=== PATIENT | male | born 1975 | race Two or more races ===

== ENCOUNTER 2024-12-07 23:22 | Inpatient (IN) | payer OTHER, MEDICARE ==
[~2024-12-07] VITALS: Ht 172.7 cm; Wt 107.0 kg
[2024-12-08] VITALS (18 sets, daily range): BP systolic 91–108; BP diastolic 46–63; PULSE 67–106; RESP 16–28; TEMP 98.1–100.3; O2SAT 92–100
[2024-12-08] MEDS: proCHLORperazine 10 MG/2 ml inj IV ONE (00:46)
[2024-12-08 01:06] LABS: BASOPHILS % (AUTO) 0.3 % (0-1); EOSINOPHILS % (AUTO) 0 % (0-6); HEMOGLOBIN 12.1 g/dl (14.0-17.9); LYMPHOCYTES # (AUTO) 0.4 X10'3 (1.1-4.8); LYMPHOCYTES % (AUTO) 3.2 % (21-51); MEAN CORPUSCULAR HEMOGLOBIN 32.3 PG (27.0-31.0); MEAN CORPUSCULAR HGB CONC 34.5 g/dL (33.0-36.5); MEAN CORPUSCULAR VOLUME 93.6 FL (78-98); MEAN PLATELET VOLUME 7.9 FL (7.4-10.4); MONOCYTES # (AUTO) 0.6 X10'3 (0-0.9); MONOCYTES % (AUTO) 5.5 % (2-12); PLATELET COUNT 140 X10'3 (140-440); RED BLOOD COUNT 3.74 X10'6 (4.70-6.10); RED CELL DISTRIBUTION WIDTH 16.9 % (11.5-14.5)
[2024-12-08] MEDS ORDERED: INSU100I98 (01:08)
[2024-12-08] MEDS ORDERED: AMLO5TAB5 PO (01:08)
[2024-12-08] MEDS ORDERED: ALLO100T PO (01:08)
[2024-12-08] MEDS ORDERED: CALC0.2510 (01:08)
[2024-12-08] MEDS ORDERED: GABA-530 PO (01:08)
[2024-12-08] MEDS ORDERED: SENN8.6T19 PO (01:08)
[2024-12-08] MEDS ORDERED: CALC667C5 PO (01:08)
[2024-12-08] MEDS ORDERED: ONDA-243 PO (01:08)
[2024-12-08] MEDS ORDERED: INSU100C4 SQ (01:08)
[2024-12-08] MEDS ORDERED: FURO80TA3 PO (01:08)
[2024-12-08] MEDS ORDERED: COUM1POW (01:08)
[2024-12-08] MEDS ORDERED: NORT75CA PO (01:08)
[2024-12-08] MEDS ORDERED: SEVE800T8 PO (01:08)
[2024-12-08] MEDS ORDERED: ATOR80TA PO (01:08)
[2024-12-08] MEDS ORDERED: LEVO50TA PO (01:08)
[2024-12-08] MEDS ORDERED: POLY17PO10 PO (01:08)
[2024-12-08] MEDS ORDERED: APIX2.5T PO (01:08)
[2024-12-08] MEDS ORDERED: OXYC5TAB2 PO (01:08)
[2024-12-08] MEDS ORDERED: DOCU-148 PO (01:08)
[2024-12-08] MEDS ORDERED: ACET-1008 PO (01:08)
[2024-12-08] MEDS ORDERED: CLON1PAT (01:08)
[2024-12-08] MEDS ORDERED: HYDR25TA90 PO (01:08)
[2024-12-08] MEDS ORDERED: LOSA-418 PO (01:08)
[2024-12-08] MEDS ORDERED: ISOS120T13 PO (01:08)
[2024-12-08 01:26] LABS: ALANINE AMINOTRANSFERASE 126 U/L (12-78); ALBUMIN 2.2 G/DL (3.4-5.0); ALBUMIN/GLOBULIN RATIO 0.5 (1.1-1.5); ALKALINE PHOSPHATASE 147 IU/L (46-116); ANION GAP 12 (8-16); ASPARTATE AMINO TRANSFERASE 202 U/L (10-37); BILIRUBIN,TOTAL 1.8 MG/DL (0.1-1.0); BLOOD UREA NITROGEN 65 MG/DL (7-18); BUN/CREATININE RATIO 8.3 (10.0-20.0); CALCIUM 8.2 MG/DL (8.5-10.1); CHLORIDE 90 MMOL/L (99-107); GLUCOSE 133 MG/DL (70-104); LIPASE 14 U/L (16-77); POTASSIUM 5.6 MMOL/L (3.5-5.1); SODIUM 128 MMOL/L (135-145); TOTAL CARBON DIOXIDE 25.9 MMOL/L (24-32); TOTAL PROTEIN 6.8 G/DL (6.4-8.2); eCRCL 11 ML/MIN; eGFR 7 ML/MIN
[2024-12-08 01:32] LABS: PRO BRAIN NATRIURETIC PEPTIDE > 30000 PG/ML (0-125)
[2024-12-08] MEDS ORDERED: potassium Cl 40MEQ/1/2NS 520ml 520 ML IV PRN (01:35)
[2024-12-08] MEDS ORDERED: magnesium sulf-water 2g/50mL 50 ML IV PRN (01:35)
[2024-12-08] MEDS ORDERED: acetaminophen 325mg tablet PO PRN (01:35)
[2024-12-08] MEDS ORDERED: magnesium hydroxide 30ml (MOM) UD suspension PO PRN (01:35)
[2024-12-08] MEDS ORDERED: mag hydrox/Alum hydrox/simeth 30ml oral suspension PO PRN (01:35)
[2024-12-08] MEDS ORDERED: potassium Cl 20 mEq SR tablet PO PRN ×2 (01:35)
[2024-12-08] MEDS ORDERED: magnesium sulf-water 4G/100mL 100 ML IV PRN (01:35)
[2024-12-08] MEDS ORDERED: magnesium Cl slow-release 64mg tablet PO PRN (01:35)
[2024-12-08 01:52] LABS: PHOSPHORUS 7.1 MG/DL (2.3-4.5)
[2024-12-08] MEDS: insulin regular, human 10 units/0.1 ml syringe IV ONE (02:22)
[2024-12-08] MEDS: dextrose 50%-water 50ml dispensing syringe IV ONE ×2 (02:22→04:22)
[2024-12-08] MEDS: carvedilol 6.25mg tablet PO SCH (02:30)
[2024-12-08] MEDS ORDERED: VANCOMYCIN 1GM 200ML H20 (PEG) 200 ML IV PRN (03:40)
[2024-12-08] MEDS ORDERED: dextrose 50%-water 50ml dispensing syringe IV PRN (04:15)
[2024-12-08] MEDS ORDERED: glucagon, human recombinant 1mg kit SUBCUT PRN (04:15)
[2024-12-08] MEDS ORDERED: DEXTROSE 15 GM of carb/4 tabs (each vial/BOTTLE has 4 tablets) PO PRN ×2 (04:15)
[2024-12-08] MEDS: dextrose 50%-water 50ml dispensing syringe IV PRN (04:25)
[2024-12-08] MEDS: CefTRIAXone/D5W-Rocephin 1gm 50 ML IV SCH (04:35)
[2024-12-08 04:42] LABS: ABG BASE EXCESS 1.3 mmol/L (-2.0-3.0); ABG OXYGEN SATURATION 93.8 % (94.0-98.0); ABG PCO2 (T) 37.4 mmHg (35.0-48.0); ABG PH (T) 7.445 (7.350-7.450); ABG PO2 (T) 79.8 mmHg (83.0-108.0); ALLEN'S TEST POSITIVE; FCOHb 0.5 % (0.5-1.5); FHHb 6.2 % (0.0-5.0); FMetHb 0.3 % (0.0-1.5); MODE VENT - CPAP; PATIENT TEMPERATURE 37.9; TOTAL HEMOGLOBIN 11.2 G/dl (13.5-17.5)
[2024-12-08] MEDS: VANCOMYCIN 1.75GM/WATER FOR INJ (PEG) 350 ML IVPB IV ONE (05:24)
[2024-12-08] MEDS: heparin, porcine 5000 units/ml vial SQ SCH (07:32)
[2024-12-08] MEDS: K and/or MAG REPLACEMENT MC SCH (08:00)
[2024-12-08] MEDS: piperacillin/tazo 4.5gm/100ml 100 ML IV SCH (08:54)
[2024-12-08] MEDS ORDERED: albumin (human) 25% 100ml IV 100 ML IV PRN (12:35)
[2024-12-08] MEDS: ondansetron/PF 4mg/2ml inj IV PRN (13:17)
[2024-12-08] MEDS: morphine 2 MG/ML inj. syringe IV PRN (13:17)
[2024-12-08 14:34] LABS: C DIFF ANTIGEN NEGATIVE (NEGATIVE); C DIFF SPECIMEN=DIARRHEA? ACCEPTABLE; C DIFFICILE TOXINS A&B NEGATIVE (Neg)
[2024-12-08] MEDS: hydrALAZINE 25 MG tablet PO SCH (15:35)
[2024-12-08] MEDS: gabapentin 300mg capsule PO SCH (15:36)
[2024-12-08] MEDS: heparin 1,000 units/ml 10ml inj HE ONE ×2 (16:06)
[2024-12-08] MEDS: heparin 1,000unit/ml 10ml vial 10 ML IV ONE (16:35)
[2024-12-08] MEDS: heparin 1,000 units/ml 10ml inj IV ONE (16:36)
[2024-12-08] MEDS: NUT.TX.IMP.RENAL FXN,LAC-REDUC (Nepro) 237 ML VANILLA PO SCH (18:15)
[2024-12-08] MEDS: nortriptyline 25mg capsule PO SCH (20:18)
[2024-12-09] VITALS (11 sets, daily range): BP systolic 78–97; BP diastolic 41–50; PULSE 78–86; RESP 18–26; TEMP 97.7–99.2; O2SAT 93–100
[2024-12-09] MEDS: VANCOMYCIN LEVEL IV SCH (03:00)
[2024-12-09 05:36] LABS: BASOPHILS % (AUTO) 0.3 % (0-1); EOSINOPHILS # (AUTO) 0.1 X10'3 (0-0.9); EOSINOPHILS % (AUTO) 0.9 % (0-6); HEMATOCRIT 29.6 % (42.0-52.0); LYMPHOCYTES # (AUTO) 0.4 X10'3 (1.1-4.8); LYMPHOCYTES % (AUTO) 5.2 % (21-51); MEAN CORPUSCULAR HEMOGLOBIN 32.1 PG (27.0-31.0); MEAN CORPUSCULAR HGB CONC 33.9 g/dL (33.0-36.5); MEAN CORPUSCULAR VOLUME 94.8 FL (78-98); MEAN PLATELET VOLUME 8.6 FL (7.4-10.4); MONOCYTES # (AUTO) 0.8 X10'3 (0-0.9); NEUTROPHILS # (AUTO) 6.3 X10'3 (1.8-7.7); NEUTROPHILS % (AUTO) 83.6 % (42-75); PLATELET COUNT 104 X10'3 (140-440); RED BLOOD COUNT 3.12 X10'6 (4.70-6.10); RED CELL DISTRIBUTION WIDTH 17.1 % (11.5-14.5); WHITE BLOOD COUNT 7.5 X10'3 (4.5-11.0)
[2024-12-09 05:57] LABS: ALANINE AMINOTRANSFERASE 148 U/L (12-78); ALBUMIN 1.4 G/DL (3.4-5.0); ALBUMIN/GLOBULIN RATIO 0.4 (1.1-1.5); ALKALINE PHOSPHATASE 103 IU/L (46-116); ANION GAP 12 (8-16); ASPARTATE AMINO TRANSFERASE 143 U/L (10-37); BILIRUBIN,TOTAL 1.3 MG/DL (0.1-1.0); BLOOD UREA NITROGEN 57 MG/DL (7-18); BUN/CREATININE RATIO 8.5 (10.0-20.0); CALCIUM 7.6 MG/DL (8.5-10.1); CHLORIDE 95 MMOL/L (99-107); CREATININE 6.72 MG/DL (0.60-1.10); GLUCOSE 123 MG/DL (70-104); MAGNESIUM 3.4 MG/DL (1.5-2.4); POTASSIUM 4.7 MMOL/L (3.5-5.1); SODIUM 132 MMOL/L (135-145); TOTAL CARBON DIOXIDE 24.9 MMOL/L (24-32); TOTAL PROTEIN 5.1 G/DL (6.4-8.2); eCRCL 13 ML/MIN; eGFR 9 ML/MIN
[2024-12-09] MEDS ORDERED: amLODIPine 5mg tablet PO SCH (08:00)
[2024-12-09] MEDS: levoTHYROXINE 25mcg tablet PO SCH (08:00)
[2024-12-09] MEDS ORDERED: losartan 50mg tablet PO SCH (08:00)
[2024-12-09] MEDS: furosemide 40mg tablet PO SCH (08:00)
[2024-12-09] MEDS: atorvastatin 20mg tablet PO SCH (08:00)
[2024-12-09] MEDS: albumin (human) 25% 100 ML IV solution IV ONE (11:01)
[2024-12-09] MEDS: albumin (human) 25% 100 ML IV solution IV SCH (16:00)
[2024-12-09] MEDS: VANCOMYCIN 1GM 200ML H20 (PEG) 200 ML IV ONE (16:32)
[2024-12-09] MEDS: gabapentin 100mg capsule PO SCH (16:45)
[2024-12-09] MEDS: albumin (Human) 5% 250ml 250 ML IV ONE ×2 (17:52→20:06)
[2024-12-09] MEDS ORDERED: vancomycin/NS 1 GM ADD-VANTAGE 250 ML IV SCH (20:00)
[2024-12-09] MEDS: midodrine 5mg tablet PO STA (23:50)
[2024-12-10] VITALS (39 sets, daily range): BP systolic 78–147; BP diastolic 42–85; PULSE 81–90; RESP 11–29; TEMP 97.9–99.1; O2SAT 86–100
[2024-12-10] MEDS: midodrine 5mg tablet PO SCH (03:25)
[2024-12-10] MEDS: normal saline 500ml IV soln 500 ML IV ONE (03:36)
[2024-12-10 07:02] LABS: BASOPHILS % (AUTO) 0.5 % (0-1); EOSINOPHILS # (AUTO) 0.4 X10'3 (0-0.9); EOSINOPHILS % (AUTO) 4.6 % (0-6); LYMPHOCYTES # (AUTO) 0.7 X10'3 (1.1-4.8); LYMPHOCYTES % (AUTO) 8.1 % (21-51); MEAN CORPUSCULAR HEMOGLOBIN 31.7 PG (27.0-31.0); MEAN CORPUSCULAR HGB CONC 33.5 g/dL (33.0-36.5); MEAN CORPUSCULAR VOLUME 94.6 FL (78-98); MEAN PLATELET VOLUME 9.5 FL (7.4-10.4); MONOCYTES # (AUTO) 1.2 X10'3 (0-0.9); MONOCYTES % (AUTO) 13.9 % (2-12); NEUTROPHILS # (AUTO) 6.2 X10'3 (1.8-7.7); NEUTROPHILS % (AUTO) 72.9 % (42-75); PLATELET COUNT 83 X10'3 (140-440); RED BLOOD COUNT 3.17 X10'6 (4.70-6.10); RED CELL DISTRIBUTION WIDTH 16.9 % (11.5-14.5); WHITE BLOOD COUNT 8.5 X10'3 (4.5-11.0)
[2024-12-10 07:54] LABS: ALANINE AMINOTRANSFERASE 167 U/L (12-78); ALBUMIN 2.4 G/DL (3.4-5.0); ALBUMIN/GLOBULIN RATIO 0.7 (1.1-1.5); ANION GAP 17 (8-16); ASPARTATE AMINO TRANSFERASE 164 U/L (10-37); BILIRUBIN,TOTAL 1.5 MG/DL (0.1-1.0); BLOOD UREA NITROGEN 73 MG/DL (7-18); BUN/CREATININE RATIO 8.8 (10.0-20.0); CALCIUM 7.8 MG/DL (8.5-10.1); CHLORIDE 93 MMOL/L (99-107); CREATININE 8.26 MG/DL (0.60-1.10); GLUCOSE 131 MG/DL (70-104); MAGNESIUM 2.2 MG/DL (1.5-2.4); POTASSIUM 4.7 MMOL/L (3.5-5.1); SODIUM 131 MMOL/L (135-145); TOTAL CARBON DIOXIDE 20.6 MMOL/L (24-32); TOTAL PROTEIN 5.8 G/DL (6.4-8.2); eCRCL 11 ML/MIN; eGFR 7 ML/MIN
[2024-12-10] MEDS ORDERED: midodrine 5mg tablet PO SCH (08:00)
[2024-12-10 08:15] LABS: ALKALINE PHOSPHATASE 146 IU/L (46-116); VANCOMYCIN,RANDOM 22.5 ug/mL (20.0-30.0)
[2024-12-10] MEDS: MULTIVIT-MIN/FERROUS GLUCONATE 9 MG/15 ML LIQUID PO SCH (09:00)
[2024-12-10] MEDS: NORepinephrine 8mg/ 250ml NS 250 ML IV ONE (09:22)
[2024-12-10] MEDS: NORepinephrine 8mg/ 250ml NS 250 ML IV SCH (09:24)
[2024-12-10] MEDS: pantoprazole 40MG/NS 100ML BAG 100 ML IV SCH (10:17)
[2024-12-10] MEDS: NS IV ONE (10:20)
[2024-12-10] MEDS: DOXYCYCLINE IV ONE (10:20)
[2024-12-10 11:15] LABS: ABG HCO3 23.2 mmol/L (21.0-28.0); ABG OXYGEN SATURATION 94.6 % (94.0-98.0); ABG PCO2 (T) 36.8 mmHg (35.0-48.0); ABG PH (T) 7.417 (7.350-7.450); ABG PO2 (T) 77.9 mmHg (83.0-108.0); ALLEN'S TEST POSITIVE; FCOHb 0.8 % (0.5-1.5); FHHb 5.3 % (0.0-5.0); FLOW 3 L/min; FMetHb 0.3 % (0.0-1.5); FO2Hb 93.6 % (94.0-98.0); MODE NASAL CANNULA; PATIENT TEMPERATURE 36.9; TOTAL HEMOGLOBIN 11.3 G/dl (13.5-17.5)
[2024-12-10] MEDS: heparin 1,000unit/ml 10ml vial 10 ML IV ONE (11:51)
[2024-12-10] MEDS: heparin 1,000 units/ml 10ml inj IV ONE (11:52)
[2024-12-10] MEDS: ondansetron 4mg rapidly disintigrating tab PO ONE (14:55)
[2024-12-10] MEDS: DOXYCYCLINE 100 MG in NORMAL SALINE 100ml IV.SOLN IV SCH (21:22)
[2024-12-11] VITALS (17 sets, daily range): BP systolic 95–128; BP diastolic 51–82; PULSE 83–96; RESP 16–24; TEMP 97–98.1; O2SAT 9–100
[2024-12-11 05:18] LABS: HBSAG SCREEN Negative (Negative); HEP B SURF AB Reactive (.)
[2024-12-11 08:34] LABS: BASOPHILS # (AUTO) 0.1 X10'3 (0-0.2); BASOPHILS % (AUTO) 0.7 % (0-1); EOSINOPHILS # (AUTO) 0.3 X10'3 (0-0.9); EOSINOPHILS % (AUTO) 4.2 % (0-6); HEMATOCRIT 31.9 % (42.0-52.0); HEMOGLOBIN 10.7 g/dl (14.0-17.9); LYMPHOCYTES # (AUTO) 0.5 X10'3 (1.1-4.8); MEAN CORPUSCULAR HEMOGLOBIN 31.6 PG (27.0-31.0); MEAN CORPUSCULAR HGB CONC 33.6 g/dL (33.0-36.5); MEAN CORPUSCULAR VOLUME 93.9 FL (78-98); MEAN PLATELET VOLUME 9.2 FL (7.4-10.4); MONOCYTES % (AUTO) 12.4 % (2-12); NEUTROPHILS % (AUTO) 76.7 % (42-75); PLATELET COUNT 94 X10'3 (140-440); RED BLOOD COUNT 3.39 X10'6 (4.70-6.10); RED CELL DISTRIBUTION WIDTH 16.7 % (11.5-14.5); WHITE BLOOD COUNT 7.9 X10'3 (4.5-11.0)
[2024-12-11 08:58] LABS: ALANINE AMINOTRANSFERASE 145 U/L (12-78); ALBUMIN 2.5 G/DL (3.4-5.0); ALBUMIN/GLOBULIN RATIO 0.7 (1.1-1.5); ALKALINE PHOSPHATASE 139 IU/L (46-116); ANION GAP 16 (8-16); ASPARTATE AMINO TRANSFERASE 89 U/L (10-37); BILIRUBIN,TOTAL 1.7 MG/DL (0.1-1.0); BLOOD UREA NITROGEN 53 MG/DL (7-18); BUN/CREATININE RATIO 8.2 (10.0-20.0); CALCIUM 8.3 MG/DL (8.5-10.1); CHLORIDE 97 MMOL/L (99-107); CREATININE 6.48 MG/DL (0.60-1.10); GLUCOSE 146 MG/DL (70-104); MAGNESIUM 2.2 MG/DL (1.5-2.4); PHOSPHORUS 6.5 MG/DL (2.3-4.5); SODIUM 134 MMOL/L (135-145); TOTAL PROTEIN 6.1 G/DL (6.4-8.2); VANCOMYCIN,RANDOM 16.2 ug/mL (20.0-30.0); eCRCL 14 ML/MIN; eGFR 9 ML/MIN
[2024-12-11] MEDS ORDERED: DEXTROSE 15 GM of carb/4 tabs (each vial/BOTTLE has 4 tablets) PO PRN ×2 (14:15)
[2024-12-11] MEDS ORDERED: glucagon, human recombinant 1mg kit SUBCUT PRN (14:15)
[2024-12-11] MEDS ORDERED: dextrose 50%-water 50ml dispensing syringe IV PRN ×2 (14:15)
[2024-12-11] MEDS: INSULIN LISPRO 100 UNIT/ML INSULN.PEN MULTI-DOSE SQ SCH ×2 (17:00→18:00)
[2024-12-11] MEDS: ampicill/sulbac 1.5gm/NS 100ml 100 ML IV SCH (19:32)
[2024-12-11] MEDS: insulin glargine (Lantus) pen - multi-dose SQ SCH (21:37)
[2024-12-12] VITALS (12 sets, daily range): BP systolic 92–112; BP diastolic 50–72; PULSE 71–88; RESP 14–24; TEMP 97.4–98.1; O2SAT 93–100
[2024-12-12 07:38] LABS: BASOPHILS # (AUTO) 0.1 X10'3 (0-0.2); BASOPHILS % (AUTO) 0.8 % (0-1); EOSINOPHILS # (AUTO) 0.3 X10'3 (0-0.9); EOSINOPHILS % (AUTO) 4.2 % (0-6); HEMATOCRIT 30.3 % (42.0-52.0); HEMOGLOBIN 10.3 g/dl (14.0-17.9); LYMPHOCYTES # (AUTO) 0.7 X10'3 (1.1-4.8); LYMPHOCYTES % (AUTO) 10.4 % (21-51); MEAN CORPUSCULAR VOLUME 94.3 FL (78-98); MEAN PLATELET VOLUME 9.1 FL (7.4-10.4); MONOCYTES # (AUTO) 1.2 X10'3 (0-0.9); MONOCYTES % (AUTO) 18.2 % (2-12); NEUTROPHILS # (AUTO) 4.3 X10'3 (1.8-7.7); NEUTROPHILS % (AUTO) 66.4 % (42-75); PLATELET COUNT 127 X10'3 (140-440); RED BLOOD COUNT 3.21 X10'6 (4.70-6.10); RED CELL DISTRIBUTION WIDTH 17.3 % (11.5-14.5); WHITE BLOOD COUNT 6.5 X10'3 (4.5-11.0)
[2024-12-12 07:43] LABS: ALANINE AMINOTRANSFERASE 129 U/L (12-78); ALBUMIN 2.4 G/DL (3.4-5.0); ALBUMIN/GLOBULIN RATIO 0.6 (1.1-1.5); ALKALINE PHOSPHATASE 153 IU/L (46-116); ANION GAP 16 (8-16); ASPARTATE AMINO TRANSFERASE 61 U/L (10-37); BILIRUBIN,TOTAL 1.3 MG/DL (0.1-1.0); BLOOD UREA NITROGEN 60 MG/DL (7-18); BUN/CREATININE RATIO 7.8 (10.0-20.0); CALCIUM 8.2 MG/DL (8.5-10.1); CHLORIDE 97 MMOL/L (99-107); CREATININE 7.74 MG/DL (0.60-1.10); GLUCOSE 104 MG/DL (70-104); MAGNESIUM 2.4 MG/DL (1.5-2.4); PHOSPHORUS 7.3 MG/DL (2.3-4.5); SODIUM 136 MMOL/L (135-145); TOTAL CARBON DIOXIDE 23.2 MMOL/L (24-32); TOTAL PROTEIN 6.2 G/DL (6.4-8.2); VANCOMYCIN,RANDOM 15.7 ug/mL (20.0-30.0); eCRCL 11 ML/MIN; eGFR 8 ML/MIN
[2024-12-12 08:46] LABS: ANISOCYTOSIS 1+; BURR CELLS FEW; ELLIPTOCYTES FEW; PLATELET ESTIMATE DECREASED; POLYCHROMASIA FEW; TOTAL CELLS COUNTED 100
[2024-12-13] VITALS (16 sets, daily range): BP systolic 108–136; BP diastolic 52–81; PULSE 84–102; RESP 16–27; TEMP 96.6–97.8; O2SAT 88–100
[2024-12-13 06:19] LABS: BASOPHILS % (AUTO) 0.9 % (0-1); EOSINOPHILS # (AUTO) 0.1 X10'3 (0-0.9); EOSINOPHILS % (AUTO) 2.7 % (0-6); HEMATOCRIT 30.5 % (42.0-52.0); HEMOGLOBIN 10.3 g/dl (14.0-17.9); LYMPHOCYTES # (AUTO) 0.6 X10'3 (1.1-4.8); MEAN CORPUSCULAR HEMOGLOBIN 31.6 PG (27.0-31.0); MEAN CORPUSCULAR HGB CONC 33.7 g/dL (33.0-36.5); MEAN CORPUSCULAR VOLUME 93.9 FL (78-98); MEAN PLATELET VOLUME 8.7 FL (7.4-10.4); MONOCYTES # (AUTO) 0.9 X10'3 (0-0.9); MONOCYTES % (AUTO) 16.3 % (2-12); NEUTROPHILS # (AUTO) 3.6 X10'3 (1.8-7.7); NEUTROPHILS % (AUTO) 68.1 % (42-75); PLATELET COUNT 152 X10'3 (140-440); RED BLOOD COUNT 3.24 X10'6 (4.70-6.10); RED CELL DISTRIBUTION WIDTH 16.9 % (11.5-14.5); WHITE BLOOD COUNT 5.3 X10'3 (4.5-11.0)
[2024-12-13 06:43] LABS: ALANINE AMINOTRANSFERASE 106 U/L (12-78); ALBUMIN 2.4 G/DL (3.4-5.0); ALBUMIN/GLOBULIN RATIO 0.6 (1.1-1.5); ALKALINE PHOSPHATASE 173 IU/L (46-116); ANION GAP 15 (8-16); ASPARTATE AMINO TRANSFERASE 44 U/L (10-37); BILIRUBIN,TOTAL 1.7 MG/DL (0.1-1.0); BLOOD UREA NITROGEN 63 MG/DL (7-18); BUN/CREATININE RATIO 7.1 (10.0-20.0); CALCIUM 8.3 MG/DL (8.5-10.1); CHLORIDE 95 MMOL/L (99-107); CREATININE 8.93 MG/DL (0.60-1.10); GLUCOSE 89 MG/DL (70-104); MAGNESIUM 2.4 MG/DL (1.5-2.4); PHOSPHORUS 8.2 MG/DL (2.3-4.5); SODIUM 133 MMOL/L (135-145); TOTAL CARBON DIOXIDE 22.9 MMOL/L (24-32); TOTAL PROTEIN 6.7 G/DL (6.4-8.2); VANCOMYCIN,RANDOM 15.5 ug/mL (20.0-30.0); eCRCL 10 ML/MIN; eGFR 6 ML/MIN
[2024-12-13] MEDS ORDERED: normal saline 1000ml 100 ML IV PRN (08:00)
[2024-12-13] MEDS: pantoprazole 40mg Tablet.DR PO SCH (08:55)
[2024-12-13] MEDS: EPOETIN ALFA-EPBX 20,000 UNIT/ML 1 ML MDV IV ONE (12:37)
[2024-12-13] MEDS: ceFAZolin/D5W- 1GM premix 50 ML IV SCH (15:45)
[2024-12-13] MEDS ORDERED: DEXTROSE 15 GM of carb/4 tabs (each vial/BOTTLE has 4 tablets) PO PRN (23:55)
[2024-12-14] VITALS (10 sets, daily range): BP systolic 110–143; BP diastolic 66–84; PULSE 98–107; RESP 13–22; TEMP 97–99; O2SAT 91–100
[2024-12-14 08:04] LABS: BASOPHILS # (AUTO) 0.1 X10'3 (0-0.2); BASOPHILS % (AUTO) 0.9 % (0-1); EOSINOPHILS # (AUTO) 0.1 X10'3 (0-0.9); EOSINOPHILS % (AUTO) 0.8 % (0-6); HEMATOCRIT 32.1 % (42.0-52.0); HEMOGLOBIN 10.7 g/dl (14.0-17.9); LYMPHOCYTES # (AUTO) 0.5 X10'3 (1.1-4.8); LYMPHOCYTES % (AUTO) 6.4 % (21-51); MEAN CORPUSCULAR HEMOGLOBIN 31.5 PG (27.0-31.0); MEAN CORPUSCULAR HGB CONC 33.3 g/dL (33.0-36.5); MEAN CORPUSCULAR VOLUME 94.4 FL (78-98); MEAN PLATELET VOLUME 8.3 FL (7.4-10.4); MONOCYTES # (AUTO) 1.1 X10'3 (0-0.9); MONOCYTES % (AUTO) 13.8 % (2-12); NEUTROPHILS % (AUTO) 78.1 % (42-75); PLATELET COUNT 204 X10'3 (140-440); WHITE BLOOD COUNT 7.6 X10'3 (4.5-11.0)
[2024-12-14 08:24] LABS: ALANINE AMINOTRANSFERASE 90 U/L (12-78); ALBUMIN 2.6 G/DL (3.4-5.0); ALBUMIN/GLOBULIN RATIO 0.5 (1.1-1.5); ALKALINE PHOSPHATASE 231 IU/L (46-116); ANION GAP 10 (8-16); ASPARTATE AMINO TRANSFERASE 34 U/L (10-37); BILIRUBIN,TOTAL 1.2 MG/DL (0.1-1.0); BLOOD UREA NITROGEN 43 MG/DL (7-18); CALCIUM 8.9 MG/DL (8.5-10.1); CHLORIDE 98 MMOL/L (99-107); CREATININE 7.14 MG/DL (0.60-1.10); GLUCOSE 109 MG/DL (70-104); POTASSIUM 3.9 MMOL/L (3.5-5.1); SODIUM 136 MMOL/L (135-145); TOTAL CARBON DIOXIDE 27.8 MMOL/L (24-32); TOTAL PROTEIN 7.4 G/DL (6.4-8.2); eCRCL 12 ML/MIN; eGFR 8 ML/MIN
[2024-12-15] VITALS (14 sets, daily range): BP systolic 125–159; BP diastolic 60–96; PULSE 94–106; RESP 13–20; TEMP 97–98.9; O2SAT 92–98
[2024-12-15] MEDS: HYDROcodone/acetaminophen 5mg/325mg tablet PO PRN (03:33)
[2024-12-15 06:57] LABS: BASOPHILS # (AUTO) 0.1 X10'3 (0-0.2); BASOPHILS % (AUTO) 0.7 % (0-1); EOSINOPHILS % (AUTO) 0.4 % (0-6); HEMATOCRIT 30.9 % (42.0-52.0); HEMOGLOBIN 10.5 g/dl (14.0-17.9); LYMPHOCYTES # (AUTO) 0.6 X10'3 (1.1-4.8); LYMPHOCYTES % (AUTO) 6.4 % (21-51); MEAN CORPUSCULAR HGB CONC 33.9 g/dL (33.0-36.5); MEAN CORPUSCULAR VOLUME 94.2 FL (78-98); MEAN PLATELET VOLUME 8.2 FL (7.4-10.4); MONOCYTES # (AUTO) 1.2 X10'3 (0-0.9); MONOCYTES % (AUTO) 12.7 % (2-12); NEUTROPHILS # (AUTO) 7.5 X10'3 (1.8-7.7); NEUTROPHILS % (AUTO) 79.8 % (42-75); PLATELET COUNT 217 X10'3 (140-440); RED BLOOD COUNT 3.28 X10'6 (4.70-6.10); RED CELL DISTRIBUTION WIDTH 17.1 % (11.5-14.5); WHITE BLOOD COUNT 9.4 X10'3 (4.5-11.0)
[2024-12-15 07:25] LABS: ALANINE AMINOTRANSFERASE 49 U/L (12-78); ALBUMIN 2.5 G/DL (3.4-5.0); ALBUMIN/GLOBULIN RATIO 0.6 (1.1-1.5); ALKALINE PHOSPHATASE 253 IU/L (46-116); ANION GAP 17 (8-16); ASPARTATE AMINO TRANSFERASE 33 U/L (10-37); BILIRUBIN,TOTAL 1.2 MG/DL (0.1-1.0); BLOOD UREA NITROGEN 49 MG/DL (7-18); BUN/CREATININE RATIO 5.7 (10.0-20.0); CALCIUM 8.9 MG/DL (8.5-10.1); CHLORIDE 95 MMOL/L (99-107); CREATININE 8.65 MG/DL (0.60-1.10); GLUCOSE 150 MG/DL (70-104); POTASSIUM 4.1 MMOL/L (3.5-5.1); SODIUM 132 MMOL/L (135-145); TOTAL CARBON DIOXIDE 20.4 MMOL/L (24-32); eCRCL 10 ML/MIN; eGFR 7 ML/MIN
[2024-12-15] MEDS: clindamycin 300mg/D5W 50mL 50 ML IV SCH (14:05)
[2024-12-15] MEDS ORDERED: traMADol 50MG tablet PO PRN (16:40)
[2024-12-15] MEDS: EPOETIN ALFA-EPBX 20,000 UNIT/ML 1 ML MDV IV ONE (21:09)
[2024-12-15] MEDS: heparin 1,000 units/ml 10ml inj IV ONE (21:09)
[2024-12-15] MEDS: heparin 1,000unit/ml 10ml vial 10 ML IV ONE (21:10)
[2024-12-15] MEDS: ceFAZolin/D5W- 1GM premix 50 ML IV SCH (21:25)
[2024-12-16] VITALS (8 sets, daily range): BP systolic 102–138; BP diastolic 64–76; PULSE 96–109; RESP 11–19; TEMP 97.3–99.1; O2SAT 93–99
[2024-12-16] MEDS: HYDROcodone/acetaminophen 10/325mg tab PO PRN (10:40)
[2024-12-16 11:06] LABS: BASOPHILS # (AUTO) 0.1 X10'3 (0-0.2); BASOPHILS % (AUTO) 1.1 % (0-1); EOSINOPHILS % (AUTO) 0.1 % (0-6); HEMATOCRIT 32.7 % (42.0-52.0); LYMPHOCYTES # (AUTO) 0.5 X10'3 (1.1-4.8); LYMPHOCYTES % (AUTO) 6.4 % (21-51); MEAN CORPUSCULAR HGB CONC 33.7 g/dL (33.0-36.5); MEAN PLATELET VOLUME 7.9 FL (7.4-10.4); MONOCYTES # (AUTO) 0.8 X10'3 (0-0.9); MONOCYTES % (AUTO) 9.8 % (2-12); NEUTROPHILS # (AUTO) 6.7 X10'3 (1.8-7.7); NEUTROPHILS % (AUTO) 82.6 % (42-75); PLATELET COUNT 242 X10'3 (140-440); RED BLOOD COUNT 3.44 X10'6 (4.70-6.10); RED CELL DISTRIBUTION WIDTH 17.1 % (11.5-14.5); WHITE BLOOD COUNT 8.1 X10'3 (4.5-11.0)
[2024-12-16 11:24] LABS: ALANINE AMINOTRANSFERASE 31 U/L (12-78); ALBUMIN 2.7 G/DL (3.4-5.0); ALBUMIN/GLOBULIN RATIO 0.5 (1.1-1.5); ALKALINE PHOSPHATASE 230 IU/L (46-116); ANION GAP 12 (8-16); ASPARTATE AMINO TRANSFERASE 27 U/L (10-37); BILIRUBIN,TOTAL 1.2 MG/DL (0.1-1.0); BLOOD UREA NITROGEN 38 MG/DL (7-18); BUN/CREATININE RATIO 5.5 (10.0-20.0); CALCIUM 9.4 MG/DL (8.5-10.1); CHLORIDE 99 MMOL/L (99-107); CREATININE 6.96 MG/DL (0.60-1.10); GLUCOSE 154 MG/DL (70-104); POTASSIUM 4.3 MMOL/L (3.5-5.1); SODIUM 137 MMOL/L (135-145); TOTAL CARBON DIOXIDE 25.6 MMOL/L (24-32); TOTAL PROTEIN 7.8 G/DL (6.4-8.2); eCRCL 13 ML/MIN; eGFR 9 ML/MIN
[2024-12-17] VITALS (12 sets, daily range): BP systolic 104–144; BP diastolic 64–84; PULSE 94–107; RESP 14–20; TEMP 97.6–98; O2SAT 90–100
[2024-12-17] MEDS: heparin 1,000 units/ml 10ml inj IV ONE (08:00)
[2024-12-18 02:00] VITALS: BP 103/69; PULSE 100; RESP 18; TEMP 98.2; O2SAT 95
[2024-12-18 06:00] VITALS: BP 127/74; PULSE 97; RESP 18; TEMP 97.2; O2SAT 94
[2024-12-18 09:00] VITALS: RESP 18; O2SAT 95
[2024-12-18 11:00] VITALS: BP 120/62; PULSE 97; RESP 14; TEMP 97.7; O2SAT 96
== END 2024-12-18 13:49 | DRG 871 ==
LOC: ER 23:26 → ED HOLD 12-08 01:39 → ORTHO 4S 12-08 03:50 → CICU 2S 12-10 08:30 → ORTHO 4S 12-11 11:00 → PCU 3S 12-13 23:49 → UNDODISIN 12-15 13:28
PROVIDERS: ADMIT Internal Medicine Pulmonary Disease; ATTEND Internal Medicine
PROC: 5A1D70Z Performance of Urinary Filtration, Intermittent, Less than 6 Hours Per Day (ICD-10-PCS; principal; 2024-12-08)
PROC: 5A09357 Assistance with Respiratory Ventilation, Less than 24 Consecutive Hours, Continuous Positive Airway Pressure (ICD-10-PCS; 2024-12-08)
PROC: 5A09357 Assistance with Respiratory Ventilation, Less than 24 Consecutive Hours, Continuous Positive Airway Pressure (ICD-10-PCS; 2024-12-09)
PROC: 5A1D70Z Performance of Urinary Filtration, Intermittent, Less than 6 Hours Per Day (ICD-10-PCS; 2024-12-10)
PROC: 5A1D70Z Performance of Urinary Filtration, Intermittent, Less than 6 Hours Per Day (ICD-10-PCS; 2024-12-13)
PROC: 5A1D70Z Performance of Urinary Filtration, Intermittent, Less than 6 Hours Per Day (ICD-10-PCS; 2024-12-15)
PROC: 5A1D70Z Performance of Urinary Filtration, Intermittent, Less than 6 Hours Per Day (ICD-10-PCS; 2024-12-17)
DX: A41.01 Sepsis due to Methicillin susceptible Staphylococcus aureus (principal); G93.41 Metabolic encephalopathy; N18.6 End stage renal disease; J96.01 Acute respiratory failure with hypoxia; E87.1 Hypo-osmolality and hyponatremia; E87.20 Acidosis, unspecified; I12.0 Hypertensive chronic kidney disease with stage 5 chronic kidney disease or end stage renal disease; M86.8X7 Other osteomyelitis, ankle and foot; L03.116 Cellulitis of left lower limb; L03.115 Cellulitis of right lower limb; M60.009 Infective myositis, unspecified site; D69.6 Thrombocytopenia, unspecified; K75.81 Nonalcoholic steatohepatitis (NASH); E11.22 Type 2 diabetes mellitus with diabetic chronic kidney disease; E11.621 Type 2 diabetes mellitus with foot ulcer; E11.69 Type 2 diabetes mellitus with other specified complication; R74.01 Elevation of levels of liver transaminase levels; E66.01 Morbid (severe) obesity due to excess calories; Z68.35 Body mass index [BMI] 35.0-35.9, adult; L97.529 Non-pressure chronic ulcer of other part of left foot with unspecified severity; E87.5 Hyperkalemia; E87.70 Fluid overload, unspecified; E11.65 Type 2 diabetes mellitus with hyperglycemia; K29.70 Gastritis, unspecified, without bleeding; D64.9 Anemia, unspecified; G47.33 Obstructive sleep apnea (adult) (pediatric); S81.802A Unspecified open wound, left lower leg, initial encounter; K80.20 Calculus of gallbladder without cholecystitis without obstruction; Z89.422 Acquired absence of other left toe(s); Z99.2 Dependence on renal dialysis; Z88.8 Allergy status to other drugs, medicaments and biological substances; X58.XXXA Exposure to other specified factors, initial encounter; Y93.89 Activity, other specified; Y92.89 Other specified places as the place of occurrence of the external cause; Y99.8 Other external cause status
CPT/HCPCS: 36415; 36600; 71045; 72141; 72146; 72148; 73700; 73721; 74176; 76700; 78802; 80053; 80202; 82140; 82803; 82948; 83036; 83605; 83690; 83735; 83880; 83930; 84100; 84145; 84484; 84520; 85007; 85018; 85025; 85651; 86706; 87040; 87077; 87081; 87186; 87324; 87340; 87449; 87502; 87503; 87811; 93005; 93306; 93925; 94660; 94760; 94799; 97110; 97116; 97161; 97164; 97530; 99285; A4615; A4649; A6213; A6250; A6258; A6446; A6449; A9570; C1751; E1594; G0257; G0378; J0295; J0690; J0696; J0780; J1644; J1815; J2270; J2405; J2470; J2543; J3372; J3490; J7030; J7040; P9045; P9047; Q4081

== ENCOUNTER 2025-02-07 17:39 | Inpatient (IN) | payer OTHER, MEDICARE ==
[~2025-02-07] VITALS: Ht 172.7 cm; Wt 110.0 kg
[~2025-02-07 17:39] MED LIST: ACET-1008 PO; ALLO100T PO; AMLO5TAB5 PO; APIX2.5T PO; ATOR80TA PO; CALC0.2510; CALC667C5 PO; CLON1PAT; COUM1POW; DOCU-148 PO; FURO80TA3 PO; GABA-530 PO; HYDR25TA90 PO; INSU100C4 SQ; INSU100I98; ISOS120T13 PO; LEVO50TA PO; LOSA-418 PO; NORT75CA PO; ONDA-243 PO; OXYC5TAB2 PO; POLY17PO10 PO; SENN8.6T19 PO; SEVE800T8 PO
[2025-02-07 18:48] LABS: BASOPHILS % (AUTO) 0.2 % (0-1); EOSINOPHILS # (AUTO) 0.8 X10'3 (0-0.9); EOSINOPHILS % (AUTO) 12.3 % (0-6); HEMATOCRIT 35.2 % (42.0-52.0); HEMOGLOBIN 11.5 g/dl (14.0-17.9); LYMPHOCYTES # (AUTO) 0.3 X10'3 (1.1-4.8); LYMPHOCYTES % (AUTO) 3.8 % (21-51); MEAN CORPUSCULAR HEMOGLOBIN 32.1 PG (27.0-31.0); MEAN CORPUSCULAR HGB CONC 32.8 g/dL (33.0-36.5); MEAN CORPUSCULAR VOLUME 97.8 FL (78-98); MEAN PLATELET VOLUME 7.2 FL (7.4-10.4); MONOCYTES # (AUTO) 0.5 X10'3 (0-0.9); MONOCYTES % (AUTO) 7.9 % (2-12); NEUTROPHILS # (AUTO) 5.1 X10'3 (1.8-7.7); NEUTROPHILS % (AUTO) 75.8 % (42-75); PLATELET COUNT 186 X10'3 (140-440); RED BLOOD COUNT 3.59 X10'6 (4.70-6.10); RED CELL DISTRIBUTION WIDTH 16.5 % (11.5-14.5); WHITE BLOOD COUNT 6.7 X10'3 (4.5-11.0)
[2025-02-07 19:47] LABS: ALBUMIN 2.9 G/DL (3.4-5.0); ANION GAP 10 (8-16); BLOOD UREA NITROGEN 42 MG/DL (7-18); CALCIUM 8.7 MG/DL (8.5-10.1); CHLORIDE 98 MMOL/L (99-107); CREATININE 5.22 MG/DL (0.60-1.10); GLUCOSE 133 MG/DL (70-104); SODIUM 138 MMOL/L (135-145); TOTAL CARBON DIOXIDE 29.9 MMOL/L (24-32); eCRCL 17 ML/MIN; eGFR 12 ML/MIN
[2025-02-07] MEDS ORDERED: acetaminophen 325mg tablet PO PRN (20:10)
[2025-02-07] MEDS ORDERED: magnesium sulf-water 2g/50mL 50 ML IV PRN (20:10)
[2025-02-07] MEDS ORDERED: ondansetron/PF 4mg/2ml inj IV PRN (20:10)
[2025-02-07] MEDS ORDERED: magnesium Cl slow-release 64mg tablet PO PRN (20:10)
[2025-02-07] MEDS ORDERED: potassium Cl 40MEQ/1/2NS 520ml 520 ML IV PRN (20:10)
[2025-02-07] MEDS ORDERED: potassium Cl 20 mEq SR tablet PO PRN ×2 (20:10)
[2025-02-07] MEDS ORDERED: magnesium sulf-water 4G/100mL 100 ML IV PRN (20:10)
[2025-02-07 20:14] LABS: MAGNESIUM 2.2 MG/DL (1.5-2.4); PRO BRAIN NATRIURETIC PEPTIDE 14446 PG/ML (0-125)
[2025-02-07] MEDS ORDERED: dextrose 50%-water 50ml dispensing syringe IV PRN ×2 (20:30)
[2025-02-07] MEDS ORDERED: DEXTROSE 15 GM of carb/4 tabs (each vial/BOTTLE has 4 tablets) PO PRN ×2 (20:30)
[2025-02-07] MEDS ORDERED: glucagon, human recombinant 1mg kit SUBCUT PRN (20:30)
[2025-02-07 20:51] LABS: INR 1.1 INR; PROTHROMBIN TIME 11.2 SECONDS (9.0-12.0)
[2025-02-07 20:54] LABS: APTT 30 SECONDS (22-32)
[2025-02-07 20:57] LABS: ALANINE AMINOTRANSFERASE 28 U/L (12-78); ALBUMIN/GLOBULIN RATIO 0.6 (1.1-1.5); ALKALINE PHOSPHATASE 387 IU/L (46-116); ASPARTATE AMINO TRANSFERASE 58 U/L (10-37); BILIRUBIN,TOTAL 0.9 MG/DL (0.1-1.0); PHOSPHORUS 4.8 MG/DL (2.3-4.5); TOTAL PROTEIN 7.4 G/DL (6.4-8.2)
[2025-02-07] MEDS ORDERED: insulin glargine (Lantus) pen - multi-dose SQ SCH (21:00)
[2025-02-07 21:15] LABS: BILIRUBIN,DIRECT 0.4 MG/DL (0-0.3)
[2025-02-07 21:16] LABS: POTASSIUM 4.3 MMOL/L (3.5-5.1)
[2025-02-07] MEDS: INSULIN LISPRO 100 UNIT/ML INSULN.PEN MULTI-DOSE SQ SCH (21:28)
[2025-02-07 22:30] VITALS: BP 130/88; PULSE 108; RESP 15; TEMP 98.1; O2SAT 95
[2025-02-08] VITALS (8 sets, daily range): BP systolic 124–157; BP diastolic 74–92; PULSE 100–107; RESP 13–22; TEMP 97–98.7; O2SAT 9–100
[2025-02-08 07:32] LABS: HEMATOCRIT 32.1 % (42.0-52.0); WHITE BLOOD COUNT 5.3 X10'3 (4.5-11.0)
[2025-02-08 07:34] LABS: HEMOGLOBIN 10.6 g/dl (14.0-17.9); MEAN CORPUSCULAR HEMOGLOBIN 32.2 PG (27.0-31.0); MEAN CORPUSCULAR VOLUME 97.6 FL (78-98); MEAN PLATELET VOLUME 7.4 FL (7.4-10.4); PLATELET COUNT 197 X10'3 (140-440); RED BLOOD COUNT 3.29 X10'6 (4.70-6.10); RED CELL DISTRIBUTION WIDTH 16.5 % (11.5-14.5)
[2025-02-08 07:56] LABS: ALANINE AMINOTRANSFERASE 26 U/L (12-78); ALBUMIN 2.4 G/DL (3.4-5.0); ALBUMIN/GLOBULIN RATIO 0.6 (1.1-1.5); ALKALINE PHOSPHATASE 334 IU/L (46-116); ANION GAP 9 (8-16); ASPARTATE AMINO TRANSFERASE 44 U/L (10-37); BILIRUBIN,TOTAL 0.7 MG/DL (0.1-1.0); BLOOD UREA NITROGEN 51 MG/DL (7-18); BUN/CREATININE RATIO 8.2 (10.0-20.0); CALCIUM 8.3 MG/DL (8.5-10.1); CHLORIDE 99 MMOL/L (99-107); GLUCOSE 129 MG/DL (70-104); MAGNESIUM 1.9 MG/DL (1.5-2.4); PHOSPHORUS 5.3 MG/DL (2.3-4.5); POTASSIUM 4.3 MMOL/L (3.5-5.1); SODIUM 138 MMOL/L (135-145); TOTAL CARBON DIOXIDE 29.9 MMOL/L (24-32); TOTAL PROTEIN 6.6 G/DL (6.4-8.2); eCRCL 14 ML/MIN; eGFR 10 ML/MIN
[2025-02-08] MEDS: apixaban 2.5mg tablet PO SCH (08:00)
[2025-02-08] MEDS ORDERED: heparin, porcine 5000 units/ml vial SQ SCH (08:00)
[2025-02-08] MEDS: docusate sod 100mg capsule PO SCH (08:00)
[2025-02-08] MEDS: K and/or MAG REPLACEMENT MC SCH (08:00)
[2025-02-08 08:25] LABS: TOTAL CELLS COUNTED 100
[2025-02-08 08:26] LABS: EOSINOPHILS % (MANUAL) 15 % (0-6); LYMPHOCYTES % (MANUAL) 7 % (21-51); MONOCYTES % (MANUAL) 10 % (2-12); NEUTROPHILS % (MANUAL) 68 % (42-75); PLATELET ESTIMATE NORMAL
[2025-02-08 08:27] LABS: ANISOCYTOSIS 1+; ELLIPTOCYTES 1+
[2025-02-08] MEDS: apixaban 5mg tablet PO SCH (20:00)
[2025-02-09] VITALS (14 sets, daily range): BP systolic 113–151; BP diastolic 67–91; PULSE 99–113; RESP 14–22; TEMP 97–98.2; O2SAT 90–100
[2025-02-09 06:42] LABS: BASOPHILS # (AUTO) 0.2 X10'3 (0-0.2); BASOPHILS % (AUTO) 2.6 % (0-1); EOSINOPHILS # (AUTO) 1.1 X10'3 (0-0.9); EOSINOPHILS % (AUTO) 18.3 % (0-6); HEMATOCRIT 34.1 % (42.0-52.0); HEMOGLOBIN 11.2 g/dl (14.0-17.9); LYMPHOCYTES # (AUTO) 0.4 X10'3 (1.1-4.8); LYMPHOCYTES % (AUTO) 6.6 % (21-51); MEAN CORPUSCULAR HEMOGLOBIN 31.8 PG (27.0-31.0); MEAN CORPUSCULAR HGB CONC 32.9 g/dL (33.0-36.5); MEAN CORPUSCULAR VOLUME 96.8 FL (78-98); MEAN PLATELET VOLUME 7.1 FL (7.4-10.4); MONOCYTES # (AUTO) 0.8 X10'3 (0-0.9); NEUTROPHILS # (AUTO) 3.8 X10'3 (1.8-7.7); NEUTROPHILS % (AUTO) 60.5 % (42-75); PLATELET COUNT 199 X10'3 (140-440); RED BLOOD COUNT 3.52 X10'6 (4.70-6.10); RED CELL DISTRIBUTION WIDTH 16.1 % (11.5-14.5); WHITE BLOOD COUNT 6.3 X10'3 (4.5-11.0)
[2025-02-09 07:08] LABS: ALBUMIN 2.4 G/DL (3.4-5.0); ANION GAP 8 (8-16); BILIRUBIN,TOTAL 0.7 MG/DL (0.1-1.0); BLOOD UREA NITROGEN 68 MG/DL (7-18); BUN/CREATININE RATIO 9.2 (10.0-20.0); CALCIUM 8.3 MG/DL (8.5-10.1); CHLORIDE 101 MMOL/L (99-107); CREATININE 7.41 MG/DL (0.60-1.10); GLUCOSE 147 MG/DL (70-104); MAGNESIUM 1.9 MG/DL (1.5-2.4); PHOSPHORUS 6.4 MG/DL (2.3-4.5); POTASSIUM 4.7 MMOL/L (3.5-5.1); SODIUM 136 MMOL/L (135-145); TOTAL CARBON DIOXIDE 27.2 MMOL/L (24-32); TOTAL PROTEIN 6.7 G/DL (6.4-8.2); eCRCL 12 ML/MIN; eGFR 8 ML/MIN
[2025-02-09 07:09] LABS: ALANINE AMINOTRANSFERASE 29 U/L (12-78); ALBUMIN/GLOBULIN RATIO 0.6 (1.1-1.5); ALKALINE PHOSPHATASE 391 IU/L (46-116); ASPARTATE AMINO TRANSFERASE 80 U/L (10-37)
[2025-02-09] MEDS ORDERED: albumin (human) 25% 100ml IV 100 ML IV PRN (07:40)
[2025-02-09] MEDS: heparin 1,000 units/ml 10ml inj IV ONE (09:54)
[2025-02-09] MEDS: heparin 1,000unit/ml 10ml vial 10 ML IV ONE (09:56)
[2025-02-09] MEDS ORDERED: APIX5TAB3 PO (10:06)
[2025-02-09] MEDS ORDERED: LOSA50TA64 PO (10:06)
[2025-02-10] MEDS: LIDOcaine 5% patch TP ONE (00:03)
[2025-02-10 02:00] VITALS: BP 135/85; PULSE 104; RESP 18; TEMP 97.2; O2SAT 96
[2025-02-10 06:00] VITALS: BP 122/75; PULSE 99; RESP 22; TEMP 97; O2SAT 97
[2025-02-10 06:22] LABS: EOSINOPHILS # (AUTO) 1.2 X10'3 (0-0.9); HEMOGLOBIN 10.8 g/dl (14.0-17.9); LYMPHOCYTES # (AUTO) 0.4 X10'3 (1.1-4.8)
[2025-02-10 06:24] LABS: BASOPHILS # (AUTO) 0.1 X10'3 (0-0.2); BASOPHILS % (AUTO) 2.3 % (0-1); EOSINOPHILS % (AUTO) 19.2 % (0-6); HEMATOCRIT 32.9 % (42.0-52.0); LYMPHOCYTES % (AUTO) 6.8 % (21-51); MEAN CORPUSCULAR HEMOGLOBIN 31.7 PG (27.0-31.0); MEAN CORPUSCULAR HGB CONC 32.7 g/dL (33.0-36.5); MEAN PLATELET VOLUME 7.2 FL (7.4-10.4); MONOCYTES # (AUTO) 0.7 X10'3 (0-0.9); MONOCYTES % (AUTO) 10.5 % (2-12); NEUTROPHILS # (AUTO) 3.8 X10'3 (1.8-7.7); NEUTROPHILS % (AUTO) 61.2 % (42-75); PLATELET COUNT 200 X10'3 (140-440); RED BLOOD COUNT 3.39 X10'6 (4.70-6.10); WHITE BLOOD COUNT 6.2 X10'3 (4.5-11.0)
[2025-02-10 06:38] LABS: ALANINE AMINOTRANSFERASE 44 U/L (12-78); ALBUMIN 2.3 G/DL (3.4-5.0); ALBUMIN/GLOBULIN RATIO 0.5 (1.1-1.5); ALKALINE PHOSPHATASE 389 IU/L (46-116); ANION GAP 6 (8-16); ASPARTATE AMINO TRANSFERASE 77 U/L (10-37); BILIRUBIN,TOTAL 0.8 MG/DL (0.1-1.0); BLOOD UREA NITROGEN 61 MG/DL (7-18); BUN/CREATININE RATIO 9.4 (10.0-20.0); CALCIUM 8.5 MG/DL (8.5-10.1); CHLORIDE 103 MMOL/L (99-107); GLUCOSE 183 MG/DL (70-104); PHOSPHORUS 5.6 MG/DL (2.3-4.5); POTASSIUM 4.6 MMOL/L (3.5-5.1); SODIUM 139 MMOL/L (135-145); TOTAL CARBON DIOXIDE 29.8 MMOL/L (24-32); TOTAL PROTEIN 6.7 G/DL (6.4-8.2); eCRCL 14 ML/MIN; eGFR 9 ML/MIN
[2025-02-10] MEDS: amLODIPine 5mg tablet PO SCH (06:57)
[2025-02-10 08:00] VITALS: RESP 19; O2SAT 97
[2025-02-10 11:00] VITALS: BP 131/85; PULSE 97; RESP 19; TEMP 98.6; O2SAT 100
== END 2025-02-10 13:59 | DRG 73 ==
LOC: ER 17:40 → PCU 3S 20:17
PROVIDERS: ADMIT Internal Medicine Pulmonary Disease; ATTEND Nurse Practitioner Family
PROC: 5A1D70Z Performance of Urinary Filtration, Intermittent, Less than 6 Hours Per Day (ICD-10-PCS; principal; 2025-02-09)
DX: G90.9 Disorder of the autonomic nervous system, unspecified (principal); N18.6 End stage renal disease; I48.92 Unspecified atrial flutter; I12.0 Hypertensive chronic kidney disease with stage 5 chronic kidney disease or end stage renal disease; E11.22 Type 2 diabetes mellitus with diabetic chronic kidney disease; E11.69 Type 2 diabetes mellitus with other specified complication; Z20.822 Contact with and (suspected) exposure to COVID-19; E83.39 Other disorders of phosphorus metabolism; E66.812 Obesity, class 2; I95.3 Hypotension of hemodialysis; Z79.01 Long term (current) use of anticoagulants; Z79.4 Long term (current) use of insulin; Z99.2 Dependence on renal dialysis; Z68.36 Body mass index [BMI] 36.0-36.9, adult
CPT/HCPCS: 36415; 70450; 71045; 80048; 80053; 80076; 82948; 83036; 83735; 83880; 84100; 84484; 85007; 85025; 85610; 85730; 87081; 87502; 87503; 87811; 93005; 93880; 96372; 99285; A6209; A6223; A6260; A6402; A6446; A6449; E1594; G0257; G0378; J1644; J1815; J7030